=== PATIENT | female | born 1980 | race African-American/Black ===

== ENCOUNTER 2022-06-25 22:43 | Emergency (ER) | payer BC ==
[~2022-06-25] VITALS: Ht 167.6 cm; Wt 94.2 kg
[2022-06-26] MEDS ORDERED: ONDANSETRON 4MG ORAL DISINTEGRATING TAB PO ONE (00:10)
[2022-06-26] MEDS ORDERED: KETOROLAC TROMETHAMINE 10 MG TAB PO ONE (02:20)
[2022-06-26] MEDS ORDERED: PROMETHAZINE 25MG/ML 1ML VIAL IV ONE (02:45)
[2022-06-26 03:10] LABS: BASO % 0.2 % (0.0-1.0); EOS % 0.2 % (0.0-3.0); HEMATOCRIT 32.5 % (36.0-47.0); HEMOGLOBIN 9.9 g/dl (12.0-15.5); LYMPH % 15.1 % (24.0-44.0); MEAN CORPUSCULAR HEMOGLOBIN 21.9 pg (27.0-33.0); MEAN CORPUSCULAR HGB CONC 30.5 g/dl (32.0-36.5); MEAN CORPUSCULAR VOLUME 71.9 fl (80.0-96.0); MONO # 0.6 10^3/uL (0.0-0.8); MONO % 9.8 % (2.0-8.0); NEUTROPHILS # 4.9 10^3/uL (1.5-8.5); NEUTROPHILS % 74.5 % (36.0-66.0); PLATELET COUNT, AUTOMATED 361 10^3/uL (150-450); RED BLOOD COUNT 4.52 10^6/uL (4.00-5.40); WHITE BLOOD COUNT 6.5 10^3/uL (4.0-10.0)
[2022-06-26 03:44] LABS: CK-MB VALUE MASS 1.2 NG/ML (<3.6)
[2022-06-26 03:45] LABS: BLOOD UREA NITROGEN 11 MG/DL (9-23); CALCIUM LEVEL 9.4 MG/DL (8.5-10.1); CARBON DIOXIDE LEVEL 24 MMOL/L (20-31); CHLORIDE LEVEL 100 MMOL/L (98-107); CPK CREATINE PHOSPHOKINASE 336 U/L (34-145); CREATININE FOR GFR 0.73 MG/DL (0.55-1.30); GLOMERULAR FILTRATION RATE > 60.0 (>58); GLUCOSE, FASTING 119 MG/DL (60-100); MB/CK RELATIVE INDEX 0.35 (< OR =4); SODIUM LEVEL 136 MMOL/L (136-145)
[2022-06-26] MEDS ORDERED: NS 1,000 ML IV ONE (04:30)
[2022-06-26] MEDS ORDERED: ONDA4TAB6 PO (06:13)
[2022-06-26] MEDS ORDERED: PROM12.56 PO (06:13)
[2022-06-26 06:15] VITALS: BP 119/61
== END 2022-06-26 06:26 | disposition home or self-care (01) ==
LOC: M ED 22:43
DX: T62.91XA Toxic effect of unspecified noxious substance eaten as food, accidental (unintentional), initial encounter (principal)
CPT/HCPCS: 80048; 82550; 82553; 84484; 85025; 93005; 96374; 99284; J2550

== ENCOUNTER 2023-05-22 01:52 | Emergency (ER) | payer BC, MEDICAID ==
[~2023-05-22 01:52] MED LIST: ONDA4TAB6 PO; PROM12.56 PO
[2023-05-22 01:53] VITALS: TEMP 97
[2023-05-22] MEDS ORDERED: DOCU100C16 (02:07)
[2023-05-22] MEDS ORDERED: SENN-83 (02:07)
[2023-05-22 03:22] LABS: BASO % 0.4 % (0.0-1.0); EOS % 0.6 % (0.0-3.0); HEMOGLOBIN 10.1 g/dl (12.0-15.5); LYMPH # 1.9 10^3/uL (1.5-5.0); LYMPH % 26.6 % (24.0-44.0); MEAN CORPUSCULAR HEMOGLOBIN 21.6 pg (27.0-33.0); MEAN CORPUSCULAR HGB CONC 30.6 g/dl (32.0-36.5); MEAN CORPUSCULAR VOLUME 70.7 fl (80.0-96.0); MONO # 0.5 10^3/uL (0.0-0.8); MONO % 6.4 % (2.0-8.0); NEUTROPHILS # 4.6 10^3/uL (1.5-8.5); NEUTROPHILS % 65.6 % (36.0-66.0); PLATELET COUNT, AUTOMATED 338 10^3/uL (150-450); RED BLOOD COUNT 4.67 10^6/uL (4.00-5.40); WHITE BLOOD COUNT 7.1 10^3/uL (4.0-10.0)
[2023-05-22 03:45] LABS: ALBUMIN 3.7 G/DL (3.2-5.2); BILIRUBIN,DIRECT 0.2 MG/DL (<0.4); BILIRUBIN,TOTAL 0.4 MG/DL (0.3-1.2); TOTAL PROTEIN 7.8 G/DL (5.7-8.2)
[2023-05-22 04:22] VITALS: BP 164/73
[2023-05-22 04:52] VITALS: O2SAT 99
== END 2023-05-22 05:11 | disposition left against medical advice (07) ==
LOC: M ED 01:52
DX: Z53.21 Procedure and treatment not carried out due to patient leaving prior to being seen by health care provider (principal)

== ENCOUNTER → 2023-06-06 | Outpatient (REF) | payer BC, MEDICAID, OTHER ==
[~2023-06-06] MED LIST changes: +DOCU100C16; +SENN-83
[2023-06-06 16:59] LABS: BASO % 0.3 % (0.0-1.0); EOS % 0.4 % (0.0-3.0); HEMATOCRIT 32.3 % (36.0-47.0); HEMOGLOBIN 9.7 g/dl (12.0-15.5); LYMPH # 1.7 10^3/uL (1.5-5.0); LYMPH % 23.5 % (24.0-44.0); MEAN CORPUSCULAR VOLUME 70.1 fl (80.0-96.0); MONO # 0.6 10^3/uL (0.0-0.8); MONO % 8.1 % (2.0-8.0); NEUTROPHILS # 4.8 10^3/uL (1.5-8.5); NEUTROPHILS % 67.6 % (36.0-66.0); PLATELET COUNT, AUTOMATED 385 10^3/uL (150-450); RED BLOOD COUNT 4.61 10^6/uL (4.00-5.40); WHITE BLOOD COUNT 7.1 10^3/uL (4.0-10.0)
[2023-06-06 17:39] LABS: LIPASE 27 U/L (12-53)
[2023-06-06 17:41] LABS: TOTAL IRON BINDING CAPACITY 466 UG/DL (250-425)
[2023-06-06 17:42] LABS: AMYLASE 82 U/L (30-118); IRON (FE) 13 UG/DL (50-170); PERCENT SATURATION 2.8 % (13.2-45.0)
[2023-06-06 17:45] LABS: ALBUMIN 3.6 G/DL (3.2-5.2); ALKALINE PHOSPHATASE 87 U/L (46-116); ALT/SGPT 121 U/L (7.0-40); AST/SGOT 20 U/L (<34); BILIRUBIN,TOTAL 0.5 MG/DL (0.3-1.2); BLOOD UREA NITROGEN 13 MG/DL (9-23); CALCIUM LEVEL 8.6 MG/DL (8.5-10.1); CARBON DIOXIDE LEVEL 26 MMOL/L (20-31); CHLORIDE LEVEL 103 MMOL/L (98-107); CHOLESTEROL LEVEL 133 MG/DL (<200); CHOLESTEROL RISK RATIO 2.28 (<5); CREATININE FOR GFR 0.72 MG/DL (0.55-1.30); FERRITIN 3.6 NG/ML (7.3-270.7); FREE T4 0.91 NG/DL (0.89-1.76); GLOMERULAR FILTRATION RATE > 60.0 (>58); GLUCOSE, FASTING 80 MG/DL (60-100); HDL CHOLESTEROL 58.3 MG/DL (>40); LDL CHOLESTEROL 56.3 MG/DL (<100); NON-HDL-C 74.7 MG/DL; POTASSIUM SERUM 3.4 MMOL/L (3.5-5.1); PTH INTACT 59.6 PG/ML (18.5-88.0); SODIUM LEVEL 137 MMOL/L (136-145); THYROID STIMULATING HORMONE 1.551 uIU/ML (0.55-4.78); TOTAL PROTEIN 7.6 G/DL (5.7-8.2); TRIGLYCERIDES LEVEL 92 MG/DL (<150)
[2023-06-06 18:21] LABS: HEPATITIS B CORE ANTIBODY IGM NEGATIVE (NEGATIVE)
[2023-06-06 18:22] LABS: HEPATITIS C VIRUS ABY INDEX 0.05 INDEX (<0.8)
[2023-06-06 18:36] LABS: HEMOGLOBIN A1c 5.6 % (4.0-6.0)
== END ==
LOC: M LAB REF 16:21
PROVIDERS: ATTEND Nurse Practitioner Family
DX: R10.9 Unspecified abdominal pain (principal); D64.9 Anemia, unspecified; R74.01 Elevation of levels of liver transaminase levels

== ENCOUNTER 2023-08-05 09:23 | Outpatient (CLI) | payer BC, MEDICAID ==
[~2023-08-05] VITALS: Ht 165.1 cm; Wt 97.7 kg
[~2023-08-05 09:23] MED LIST changes: +ALBUTEROL SULFATE 2.5MG/0.5ML INH NEB SOLN INH PRN; +EPINEPHrine INJ 1 MG/ML 1ML AMP IM PRN; +NS 1,000 ML IV SCH; +diphenhydrAMINE 50MG/ML VIAL IV PRN; +methylPREDNISolone 125MG 2ML VIAL IV PRN
[2023-08-05 09:30] VITALS: BP 158/88; O2SAT 99
[2023-08-05] MEDS: IRON SUCROSE 200 MG in NS 100 ML OVER 1 HR IV ONE (10:03)
[2023-08-05] MEDS ORDERED: LISI20TA33 PO (10:18)
[2023-08-05] MEDS ORDERED: HYDR-3490 PO (10:18)
[2023-08-05 11:45] VITALS: BP 136/80; O2SAT 100
== END 2023-08-05 11:45 ==
LOC: M INFU 09:23
PROVIDERS: ATTEND Internal Medicine Hematology
DX: E61.1 Iron deficiency (principal); Z88.6 Allergy status to analgesic agent
CPT/HCPCS: 96365; J1756

== ENCOUNTER 2023-08-19 10:10 | Outpatient (CLI) | payer BC, MEDICAID ==
[~2023-08-19] VITALS: Ht 157.5 cm; Wt 60.5 kg
[2023-08-19 10:10] VITALS: BP 128/70; O2SAT 100
[~2023-08-19 10:10] MED LIST changes: +HYDR-3490 PO; +LISI20TA33 PO
[2023-08-19] MEDS: IRON SUCROSE 200 MG in NS 100 ML OVER 1 HR IV ONE (10:43)
[2023-08-19 11:50] VITALS: BP 139/84; O2SAT 100
== END 2023-08-19 11:50 | disposition home or self-care (01) ==
LOC: M INFU 10:10
PROVIDERS: ATTEND Internal Medicine Hematology
DX: E61.1 Iron deficiency (principal); Z88.6 Allergy status to analgesic agent
CPT/HCPCS: 96365; J1756

== ENCOUNTER 2023-08-26 10:30 | Outpatient (CLI) | payer BC, MEDICAID ==
[~2023-08-26] VITALS: Ht 167.6 cm; Wt 97.7 kg
[2023-08-26 10:30] VITALS: BP 142/84; O2SAT 100
[2023-08-26] MEDS: IRON SUCROSE 200 MG in NS 100 ML IV ONE (10:44)
[2023-08-26 11:50] VITALS: BP 123/79; O2SAT 100
== END 2023-08-26 11:40 ==
LOC: M INFU 10:30
PROVIDERS: ATTEND Internal Medicine Hematology
DX: E61.1 Iron deficiency (principal); Z88.6 Allergy status to analgesic agent
CPT/HCPCS: 96365; J1756

== ENCOUNTER 2023-09-02 10:20 | Outpatient (CLI) | payer BC, MEDICAID ==
[~2023-09-02] VITALS: Ht 165.1 cm; Wt 97.7 kg
[2023-09-02 10:23] VITALS: BP 159/97; O2SAT 96
[2023-09-02] MEDS: IRON SUCROSE 200 MG in NS 100 ML IV ONE (10:32)
[2023-09-02 11:40] VITALS: BP 130/80; O2SAT 100
== END 2023-09-02 11:40 | disposition home or self-care (01) ==
LOC: M INFU 10:20
PROVIDERS: ATTEND Internal Medicine Hematology
DX: E61.1 Iron deficiency (principal); Z88.6 Allergy status to analgesic agent
CPT/HCPCS: 96365; J1756

== ENCOUNTER 2023-09-09 10:30 | Outpatient (CLI) | payer BC, MEDICAID ==
[2023-09-09 10:30] VITALS: BP 151/87; O2SAT 100
[2023-09-09] MEDS: IRON SUCROSE 200 MG in NS 100 ML IV ONE (10:34)
[2023-09-09 11:30] VITALS: BP 137/90; O2SAT 100
== END 2023-09-09 11:35 ==
LOC: M INFU 10:30
PROVIDERS: ATTEND Internal Medicine Hematology
DX: E61.1 Iron deficiency (principal); Z88.6 Allergy status to analgesic agent
CPT/HCPCS: 96365; J1756

== ENCOUNTER 2023-09-16 11:00 | Outpatient (CLI) | payer BC, MEDICAID ==
[~2023-09-16 11:00] MED LIST changes: +IRON SUCROSE 200 MG in NS 100 ML OVER 1 HR IV ONE
[2023-09-16 11:30] VITALS: BP 137/78; O2SAT 100
[2023-09-16] MEDS ORDERED: NS 1,000 ML IV SCH (11:30)
[2023-09-16] MEDS: IRON SUCROSE 200 MG in NS 100 ML OVER 1 HR IV ONE (11:51)
[2023-09-16 12:30] VITALS: BP 139/88; O2SAT 100
== END 2023-09-16 12:30 ==
LOC: M INFU 11:00
PROVIDERS: ATTEND Internal Medicine Hematology
DX: E61.1 Iron deficiency (principal); Z88.6 Allergy status to analgesic agent
CPT/HCPCS: 96365; J1756